=== PATIENT | male | born 1965 | race Caucasian/White ===

== ENCOUNTER 2018-01-24 07:31 | Emergency (ER) | payer BC, OTHER ==
[2018-01-24] MEDS ORDERED: Albuterol 0.083% 2.5 MG/3 ML Neb Soln NEB ONE ×2 (07:43→09:04)
[2018-01-24] MEDS ORDERED: methylPREDNISolone Sodium Succinate 125 MG/2 ML SDV IVPUSH ONE (07:44)
[2018-01-24] MEDS ORDERED: Sodium Chloride 0.9% 10 ML Syringe FLUSH PRN (07:44)
[2018-01-24] MEDS ORDERED: Albuterol/Ipratropium 3.0-0.5 MG/3 ML Neb Soln ONE (07:44)
--- NOTE | 2018-01-24 08:10 | EDM.PDOC ---
ED HPI GENERAL MEDICAL PROBLEM - General Chief Complaint: Respiratory Problem Stated Complaint: SOB Time Seen by Provider: 01/24/18 07:46 Source of Information: Reports: Patient, RN Notes Reviewed - History of Present Illness INITIAL COMMENTS - FREE TEXT/NARRATIVE: Patient is a 52-year-old male that has had a severe cough for months. The coughing became much worse and difficulty breathing early this morning about 4 hours ago. He states he is unable to lay flat to get his breath. His been mainly nonproductive. No fever or chills. He does not smoke. He works in the [employer]. He does use an inhaler at home, this morning that was not giving him any meaningful relief. - Related Data Allergies Allergy/AdvReac Type Severity Reaction Status Date / Time No Known Drug Allergies Allergy Unknown Other Verified 01/24/18 07:41 Home Meds: Home Meds Azithromycin 500 mg PO DAILY 01/24/18 [History] Dextromethorphan/guaiFENesin [Robitussin DM] 10 ml PO Q6H PRN 01/24/18 [History] Fluticasone/Salmeterol [Advair 250-50 Diskus] 1 each IH BID 01/24/18 [History] Past Medical History Respiratory History: Reports: Asthma, Pneumonia, Recurrent Social & Family History - Tobacco Use Smoking Status *Q: Never Smoker Second Hand Smoke Exposure: No - Recreational Drug Use Recreational Drug Use: No ED ROS GENERAL - Review of Systems Review Of Systems: See Below Constitutional: Denies: Fever, Chills HEENT: Denies: Rhinitis, Sinus Problem, Throat Pain Respiratory: Reports: Shortness of Breath, Wheezing, Cough. Denies: Sputum, Hemoptysis Cardiovascular: Reports: Chest Pain GI/Abdominal: Denies: Abdominal Pain (With coughing), Nausea, Vomiting Musculoskeletal: Reports: No Symptoms Skin: Reports: No Symptoms Neurological: Reports: No Symptoms ED EXAM, GENERAL - Physical Exam Exam: See Below General Appearance: Alert, Moderate Distress (Frequent nonproductive cough, short of breath) Eye Exam: Bilateral Eye: Proptosis Nose: Normal Inspection Throat/Mouth: Normal Inspection, Normal Oropharynx Head: No: Facial Swelling Neck: Supple, Full Range of Motion. No: Lymphadenopathy (L), Lymphadenopathy (R ) Respiratory/Chest: Respiratory Distress, Wheezing, Accessory Muscle Use (Mild). No: Rhonchi (Moderate), Stridor Cardiovascular: Tachycardia Back Exam: Normal Inspection Extremities: Normal Inspection, Normal Range of Motion. No: Pedal Edema, Leg Pain Neurological: Alert, Oriented, No Motor/Sensory Deficits Skin Exam: Warm, Dry, Normal Color Course - Vital Signs Last Recorded V/S: Last Vital Signs Temp 98.4 F 01/24/18 07:33 Pulse 112 H 01/24/18 07:33 Resp 31 H 01/24/18 07:33 BP 125/106 H 01/24/18 07:33 Pulse Ox 97 01/24/18 09:14 - Orders/Labs/Meds Orders: Active Orders 24 hr Category Date Time Status Oxygen Therapy [RC] ASDIRECTED Care 01/24/18 07:44 Active Peripheral IV Care [RC] . DIRECTED Care 01/24/18 07:44 Active RT Aerosol Therapy [RC] ASDIRECTED Care 01/24/18 07:43 Active RT Aerosol Therapy [RC] ASDIRECTED Care 01/24/18 09:04 Active Chest 1V Frontal [CR] Stat Exams 01/24/18 07:44 Taken Foot Comp Min 3V Rt [CR] Stat Exams 01/24/18 08:43 Taken Sodium Chloride 0.9% [Saline Flush] Med 01/24/18 07:44 Active 10 ml FLUSH ASDIRECTED PRN Peripheral IV Insertion Adult [OM.PC] Stat Oth 01/24/18 07:44 Ordered Medication Orders Sodium Chloride (Saline Flush) 10 ml FLUSH ASDIRECTED PRN PRN Reason: Keep Vein Open Last Admin: 01/24/18 07:54 Dose: 10 ml Labs: Laboratory Tests 01/24/18 01/24/18 01/24/18 Range/Units 07:38 07:38 07:38 WBC 12.92 H (4.23-9.07) K/mm3 RBC 5.57 (4.63-6.08) M/mm3 Hgb 17.2 (13.7-17.5) gm/L Hct 50.2 (40.1-51.0) % MCV 90.1 (79.0-92.2) fl MCH 30.9 (25.7-32.2) pg MCHC 34.3 (32.2-35.5) g/dl RDW Std Deviation 43.4 (35.1-43.9) fL Plt Count 361 H (163-337) K/mm3 MPV 10.3 (9.4-12.3) fl Neut % (Auto) 43.4 (34.0-67.9) % Lymph % (Auto) 20.0 L (21.8-53.1) % Ida % (Auto) 11.1 (5.3-12.2) % Eos % (Auto) 23.8 H (0.8-7.0) Baso % (Auto) 1.5 H (0.1-1.2) % Neut # (Auto) 5.62 H (1.78-5.38) K/mm3 Lymph # (Auto) 2.58 (1.32-3.57) K/mm3 Ida # (Auto) 1.43 H (0.30-0.82) K/mm3 Eos # (Auto) 3.07 H (0.04-0.54) K/mm3 Baso # (Auto) 0.20 H (0.01-0.08) K/mm3 Manual Slide Review Abnormal smear Sodium 141 (136-145) mEq/L Potassium 4.4 (3.5-5.1) mEq/L Chloride 105 (98-107) mEq/L Carbon Dioxide 25 (21-32) mEq/L Anion Gap 15.4 H (5-15) BUN 11 (7-18) mg/dL Creatinine 1.4 H (0.7-1.3) mg/dL Est Cr Clr Drug Dosing 59.02 mL/min Estimated GFR (MDRD) 54 (>60) mL/min BUN/Creatinine Ratio 7.9 L (14-18) Glucose 111 H (74-106) mg/dL Calcium 9.1 (8.5-10.1) mg/dL Total Bilirubin 0.9 (0.2-1.0) mg/dL AST 24 (15-37) U/L ALT 38 (16-63) U/L Alkaline Phosphatase 107 (46-116) U/L C-Reactive Protein 0.3 (<1.0) mg/dL Total Protein 7.9 (6.4-8.2) g/dl Albumin 4.3 (3.4-5.0) g/dl Globulin 3.6 gm/dL Albumin/Globulin Ratio 1.2 (1-2) Mycoplasma pneumon IgM Negative (NEGATIVE) Meds: Medications Generic Name Dose Route Start Last Admin Trade Name Freq PRN Reason Stop Dose Admin Sodium Chloride 10 ml 01/24/18 07:44 01/24/18 07:54 Saline Flush FLUSH 10 ml ASDIRECTED PRN Administration Keep Vein Open Discontinued Medications Generic Name Dose Route Start Last Admin Trade Name Freq PRN Reason Stop Dose Admin Albuterol 2.5 mg 01/24/18 07:43 01/24/18 07:49 Proventil Neb Soln NEB 01/24/18 07:44 2.5 mg ONETIME ONE Administration Albuterol 2.5 mg 01/24/18 09:04 01/24/18 09:14 Proventil Neb Soln NEB 01/24/18 09:05 2.5 mg ONETIME ONE Administration Albuterol/Ipratropium Confirm 01/24/18 07:44 01/24/18 07:49 Duoneb 3.0-0.5 Mg/3 Ml Administered 01/24/18 07:45 Not Given Dose 3 ml .ROUTE .STK-MED ONE Methylprednisolone Sodium Succinate 125 mg 01/24/18 07:44 01/24/18 07:50 Solu-Medrol IVPUSH 01/24/18 07:45 125 mg ONETIME ONE Administration - Re-Assessments/Exams Free Text/Narrative Re-Assessment/Exam: , Chest x-ray does not show acute infiltrate white blood count very mildly elevated did respond fairly well to albuterol nebs. We are able to stop the oxygen, sats running 91-92% room air. He also was given Solu-Medrol 125 mg IV. I have written a prescription for nebulizer, albuterol solution to use every 4- 6 hours. Have also written a prescription for prednisone 40 mg at noon today, every morning for the next 3 days and then 20 mg for the following 2 mornings. Discharge instructions as documented. Departure - Departure Time of Disposition: 09:33 Disposition: Home, Self-Care 01 Condition: Fair Clinical Impression: Reactive airway disease Qualifiers: Asthma severity: moderate Asthma complication type: with acute exacerbation - Discharge Information Referrals: PCP,Not In Area [Primary Care Provider] - Forms: ED Department Discharge Additional Instructions: Albuterol nebs every 4-6 hours as needed for severe wheezing or difficulty breathing, prednisone 40 mg at noon today, then 40 mg every morning for the next 3 days and then 20 mg daily for the following 2 days., Claritin 10 mg daily , rest ankle and foot as much as possible, follow-up with your regular medical provider in about 8-10 days for further treatment as needed, see a Drop Press Hand as needed, return to ED as needed if symptoms worsening in any way. - My Orders Last 24 Hours: My Active Orders 01/24/18 07:43 RT Aerosol Therapy [RC] ASDIRECTED 01/24/18 07:44 Oxygen Therapy [RC] ASDIRECTED Peripheral IV Care [RC] . DIRECTED Chest 1V Frontal [CR] Stat Sodium Chloride 0.9% [Saline Flush] 10 ml FLUSH ASDIRECTED PRN Peripheral IV Insertion Adult [OM.PC] Stat 01/24/18 08:43 Foot Comp Min 3V Rt [CR] Stat 01/24/18 09:04 RT Aerosol Therapy [RC] ASDIRECTED - Assessment/Plan Last 24 Hours: My Active Orders 01/24/18 07:43 RT Aerosol Therapy [RC] ASDIRECTED 01/24/18 07:44 Oxygen Therapy [RC] ASDIRECTED Peripheral IV Care [RC] . DIRECTED Chest 1V Frontal [CR] Stat Sodium Chloride 0.9% [Saline Flush] 10 ml FLUSH ASDIRECTED PRN Peripheral IV Insertion Adult [OM.PC] Stat 01/24/18 08:43 Foot Comp Min 3V Rt [CR] Stat 01/24/18 09:04 RT Aerosol Therapy [RC] ASDIRECTED
--- NOTE | 2018-01-24 09:43 | CR ---
Chest: Portable view of the chest was obtained. Comparison: No prior chest x-ray. Heart size and mediastinum are normal. Lungs are clear. Bony structures appear grossly intact. Impression: 1. Nothing acute is identified on portable chest x-ray. Diagnostic code #1
--- NOTE | 2018-01-29 19:41 | CR ---
Right foot: Four views of the right foot were obtained. Comparison: No prior foot exam. No fracture, dislocation or other bony abnormality is seen. Impression: 1. No abnormality is appreciated on right foot exam. Diagnostic code #1
== END 2018-01-24 09:50 | disposition home or self-care (01) ==
LOC: JD.ED 07:31
DX: J45.41 Moderate persistent asthma with (acute) exacerbation (principal); Z79.899 Other long term (current) drug therapy
CPT/HCPCS: 36415; 71045; 73630; 80053; 85025; 86140; 86738; 94640; 94762; 96374; 99285; J2930; J7050; 99284

== ENCOUNTER 2020-12-10 06:37 | Day surgery (SDC) | payer OTHER ==
[2020-12-10] MEDS ORDERED: Midazolam 1 MG/ML 2 ML SDV ONE (06:51)
[2020-12-10] MEDS ORDERED: Propofol 200 MG/20 ML SDV ONE ×3 (06:51→08:51)
[2020-12-10] MEDS ORDERED: Lidocaine 1% 4 ML ONE (06:51)
[2020-12-10] MEDS ORDERED: fentaNYL 250 MCG/5 ML SDV ONE (06:51)
[2020-12-10] MEDS ORDERED: Lactated Ringers 1,000 ML IV SCH (07:00)
[2020-12-10] MEDS ORDERED: Lidocaine 1%/Sod Bicarbonate in NS 8.4% 1 ML Syringe IDERM PRN (07:00)
[2020-12-10] MEDS ORDERED: Sodium Chloride 0.9% 10 ML Syringe FLUSH PRN (07:00)
[2020-12-10] MEDS ORDERED: Bupivacaine 0.5%/EPINEPHrine 1:200,000 50 ML MDV ONE (07:12)
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
[2020-12-10] MEDS ORDERED: Albuterol 0.083% 2.5 MG/3 ML Neb Soln NEB ONE (07:24)
[2020-12-10] MEDS ORDERED: ceFAZolin 1 GM Vial ONE (07:58)
[2020-12-10] MEDS ORDERED: Lactated Ringers 1,000 ML ONE (08:16)
--- NOTE | 2020-12-10 09:32 | PCM48HPAN ---
Post Anesthesia Note - EVALUATION WITHIN 48HRS OF ANESTHETIC Vital Signs in Normal Range: Yes Patient Participated in Evaluation: Yes Respiratory Function Stable: Yes Airway Patent: Yes Cardiovascular Function Stable: Yes Hydration Status Stable: Yes Pain Control Satisfactory: Yes Nausea and Vomiting Control Satisfactory: Yes Mental Status Recovered: Yes Vital Signs: Last Vital Signs Temp 36.4 C 12/10/20 07:05 Pulse 52 L 12/10/20 07:05 Resp 16 12/10/20 07:05 BP 103/66 12/10/20 07:05 Pulse Ox 97 12/10/20 07:34
--- NOTE | 2020-12-10 09:48 | PCM.PRNOTE ---
- Free Text/Narrative Note: Date: 12/10/2020 Operation: open left inguinal hernia repair Surgeon: Immanuel Cool Findings: small indirect left inguinal hernia with associated cord lipoma Detailed Report: The patient was taken to the operating room and placed in supine position. Timeout was performed and monitored anesthesia care was initiated. Abdominal hair was clipped and the abdomen was prepped and draped in usual sterile fashion. The ASIS and pubic symphysis were palpated and the projection of the inguinal ligament was marked prior to incision. 20 cc of 0.5% Marcaine with epinephrine was injected intradermally along this marking and within the subcutaneous tissue. A 10 blade scalpel was used to make a 6 cm incision along the projection of the inguinal ligament. Dissection was carried down through Carol's fascia until the external oblique fibers were visualized. We linear retractors were placed to aid with retraction. The external ring was palpated. An additional 10 cc of local anesthetic was injected just deep to the aponeurotic fibers. A small stab incision was made just proximal to the external ring with a 15 blade scalpel. Metzenbaum scissors were passed just deep to the aponeurosis moving towards the external ring and up towards the ASIS. Scissors were then used to open the roof of the inguinal canal and cord contents were visualized. The ilioinguinal nerve was visualized and preserved. Careful blunt dissection was used to separate cord contents and hernia sac from surrounding aponeurotic fibers and cremasteric muscle. At the level of the pubic tubercle, right angle clamp was used to get around the cord structures deeply and 1/4 inch Jenny drain was placed around the contents of the inguinal canal. The spermatic cord was carefully from the hernia sac, which appeared anteromedial and looked like an indirect inguinal hernia. There was an associated moderate lipoma of the cord. The lipoma was removed and the sac was dissected back towards the internal ring. Once the sac was from all surrounding tissue, scissors were used to open the peritoneum and finger was inserted to confirm entry into the peritoneal cavity. The sac was then clamped cut and suture-ligated. Next, mesh was placed. A 15 x 9 cm piece of ProGrip permanent mesh was brought onto the field and cut to size. An anchoring 2-0 Prolene suture was placed through the mesh at Luis's ligament, with good inferior and medial overlap. The suture was then run along the shelving edge of the inguinal ligament. A slit was cut in the mesh at the lateral aspect in order to permit passage of the cord. The internal ring was then recreated bringing the slips together and securing them with a single 2-0 Prolene suture. 2 anchoring interrupted Prolene sutures were placed at the medial aspect of the mesh at the internal oblique muscle, taking care to avoid the iliohypogastric nerve. With the mesh laying flat, the external oblique aponeurotic incision was closed with interrupted 3-0 Vicryl suture. Carol's fascia was closed over this in similar fashion. Skin was closed with running 4-0 Vicryl suture and dressed with Dermabond. An additional 10 cc was injected for local block medial to the ASIS. The patient tolerated the procedure well. Proper placement of the left testicle was confirmed after the operation was completed.
== END 2020-12-10 10:36 | disposition home or self-care (01) ==
LOC: JD.SDS 06:37
PROVIDERS: ATTEND Surgery
DX: K40.90 Unilateral inguinal hernia, without obstruction or gangrene, not specified as recurrent (principal); D17.6 Benign lipomatous neoplasm of spermatic cord; J44.9 Chronic obstructive pulmonary disease, unspecified; G43.909 Migraine, unspecified, not intractable, without status migrainosus; M06.9 Rheumatoid arthritis, unspecified; G47.30 Sleep apnea, unspecified; Z88.8 Allergy status to other drugs, medicaments and biological substances; Z79.899 Other long term (current) drug therapy; Z87.891 Personal history of nicotine dependence
CPT/HCPCS: 49505; 94640; C1781; J0690; J2250; J2704; J3010; J3490; J7120; 00830

== ENCOUNTER 2022-01-25 19:47 | Emergency (ER) | payer BC, OTHER ==
[2022-01-25] MEDS ORDERED: Albuterol/Ipratropium 3.0-0.5 MG/3 ML Neb Soln NEB ONE (20:43)
[2022-01-25] MEDS ORDERED: predniSONE 20 MG Tab PO STA (21:53)
== END 2022-01-25 22:32 | disposition home or self-care (01) ==
LOC: JD.ED 19:47
DX: J20.9 Acute bronchitis, unspecified (principal); E78.00 Pure hypercholesterolemia, unspecified; M19.90 Unspecified osteoarthritis, unspecified site; K21.9 Gastro-esophageal reflux disease without esophagitis; Z88.5 Allergy status to narcotic agent; Z91.048 Other nonmedicinal substance allergy status; Z79.899 Other long term (current) drug therapy; Z87.891 Personal history of nicotine dependence; Z20.822 Contact with and (suspected) exposure to COVID-19
CPT/HCPCS: 36415; 36600; 71046; 80053; 82803; 83615; 83880; 84484; 85007; 85027; 85379; 87040; 87635; 93005; 94640; 99285; J7512; 93010; 99284; J7620-GY; U0002

== ENCOUNTER 2022-09-16 11:11 | Inpatient (IN) | payer OTHER ==
[2022-09-16] MEDS ORDERED: Sodium Chloride 0.9% 10 ML Syringe FLUSH PRN (11:27)
[2022-09-16] MEDS ORDERED: methylPREDNISolone Sodium Succinate 125 MG/2 ML SDV IVPUSH ONE (11:28)
[2022-09-16] MEDS: Albuterol 0.083% 2.5 MG/3 ML Neb Soln NEB SCH ×3 (11:50→12:39)
[2022-09-16 12:51] LABS: CORONAVIRUS COVID-19 NAA NEGATIVE (NEGATIVE)
[2022-09-16] MEDS ORDERED: Ondansetron 4 MG Tab.DIS PO PRN (14:00)
[2022-09-16] MEDS ORDERED: Acetaminophen 325 MG Tab PO PRN (14:00)
[2022-09-16] MEDS ORDERED: Sodium Chloride 0.9% 1,000 ML IV SCH (14:00)
[2022-09-16] MEDS ORDERED: Azithromycin 500 MG in Sodium Chloride 0.9% 250 ML IV SCH (15:00)
[2022-09-16] MEDS: Albuterol/Ipratropium 3.0-0.5 MG/3 ML Neb Soln NEB PRN ×2 (16:02→21:30)
[2022-09-16] MEDS: methylPREDNISolone Sodium Succinate 125 MG/2 ML SDV IVPUSH SCH (20:57)
[2022-09-17] MEDS: methylPREDNISolone Sodium Succinate 125 MG/2 ML SDV IVPUSH SCH ×2 (03:53→12:57)
[2022-09-17] MEDS: Albuterol/Ipratropium 3.0-0.5 MG/3 ML Neb Soln NEB PRN (06:53)
[2022-09-17] MEDS ORDERED: Albuterol 6.7 GM Inhaler INH PRN (08:03)
[2022-09-17] MEDS ORDERED: Albuterol/Ipratropium 3.0-0.5 MG/3 ML Neb Soln NEB PRN (08:03)
[2022-09-17] MEDS ORDERED: Levalbuterol HCl 1.25 MG/3 ML Neb INH PRN (08:03)
[2022-09-17] MEDS ORDERED: Enoxaparin 40 MG/0.4 ML Syringe SUBCUT SCH (09:00)
[2022-09-17] MEDS ORDERED: guaiFENesin 600 MG Tab.ER PO SCH (09:00)
[2022-09-17] MEDS ORDERED: Cholecalciferol (Vitamin D3) 25 MCG Tab PO SCH (09:00)
[2022-09-17] MEDS ORDERED: Cetirizine 10 MG Tab PO SCH (09:00)
[2022-09-17] MEDS ORDERED: Formoterol/Mometasone 200-5 MCG 8.8 GM Inhaler IH SCH (09:00)
[2022-09-17] MEDS ORDERED: AZELASTINE NAS SCH (12:00)
[2022-09-17] MEDS ORDERED: [UNRECOGNIZED DRUG - OTHER] NAS SCH (12:00)
[2022-09-17] MEDS ORDERED: FLUTICASONE NAS SCH (12:00)
[2022-09-17] MEDS ORDERED: Montelukast 10 MG Tab PO SCH (21:00)
[2022-09-17] MEDS ORDERED: atorvaSTATin 20 MG Tab PO SCH (21:00)
== END 2022-09-17 13:36 | disposition home or self-care (01) | DRG 189 ==
LOC: JD.ED 11:11 → JD.MS 13:46
PROVIDERS: ADMIT Internal Medicine; ATTEND Internal Medicine
DX: J96.21 Acute and chronic respiratory failure with hypoxia (principal); J45.51 Severe persistent asthma with (acute) exacerbation; J98.11 Atelectasis; J44.9 Chronic obstructive pulmonary disease, unspecified; Z20.822 Contact with and (suspected) exposure to COVID-19; E78.00 Pure hypercholesterolemia, unspecified; G47.30 Sleep apnea, unspecified; K21.9 Gastro-esophageal reflux disease without esophagitis; M54.9 Dorsalgia, unspecified; M19.90 Unspecified osteoarthritis, unspecified site; G89.29 Other chronic pain; G43.909 Migraine, unspecified, not intractable, without status migrainosus; Z98.890 Other specified postprocedural states; Z88.5 Allergy status to narcotic agent; Z88.8 Allergy status to other drugs, medicaments and biological substances; Z79.51 Long term (current) use of inhaled steroids; Z79.899 Other long term (current) drug therapy
CPT/HCPCS: 0240U; 36415; 71046; 71046-26; 71250; 71250-26; 80053; 84484; 85025; 86140; 93005; 93010; 94640; 94760; 94761; 96374; 99285; 99285-25; A9270-GY; J0456; J1650; J2930; J7030; J7050; J7620-GY